=== PATIENT | male | born 1985 | race Caucasian/White ===

== ENCOUNTER → 2021-07-28 | Day surgery (SDC) | payer OTHER ==
[~2021-07-28] VITALS: Ht 185.4 cm; Wt 90.9 kg
[~2021-07-28] MED LIST: IV RINGERS,LACTATED 1000ML 1,000 ML IV ONE; LORA5TAB7 PO; PROPOFOL 10 MG/ML (20ML) VIAL. IV ONE; VENTOLIN HFA18 GM INH
[2021-07-28 07:14] VITALS: BP 134/94
[2021-07-28 08:56] VITALS: BP 133/66
--- NOTE | 2021-08-01 11:10 | PATHOLOGY ---
[facility] Accession Number: [id number] . 01 Material submitted: . esophagus - DISTAL ESOPHAGUS BIOPSY. Modifiers: distal . 01 Clinical history: . ABD PAIN, BLOOD IN STOOL EGD/COLONOSCOPY . 02 Diagnosis: Esophagus "distal", biopsy: - Esophageal squamous mucosa with features of reflux esophagitis. - Negative for intestinal metaplasia, dysplasia and malignancy. ([facility]; 07/31/2021) [facility] 07/31/2021 1744 Local . 02 Electronically signed: . Carmen Campos MD, Pathologist NPI- [id number] . 01 Gross description: . Received in formalin labeled "[place], [place], distal esophagus BX" are multiple granger-brown soft tissue fragments measuring in aggregate 1.2 x 0.3 x 0.1 cm. The specimen is submitted entirely in A1. ([facility] [place]; 07/30/2021) [facility] 07/30/2021 0842 Local . 02 Pathologist provided ICD-10: R10.9, K92.1 . 02 CPT . 191800 Specimen Comment: A courtesy copy of this report has been sent to [phone], [phone] Specimen Comment: [id number] Specimen Comment: Report sent to / DR CONDON Specimen Comment: A duplicate report has been generated due to demographic updates. Performed at: 01 [facility] [address] [facility] [address], [place] [id number] MD Neil Kohli MD Phone: [phone] Performed at: 02 [facility] [address] [id number] MD Orlando Gu MD Phone: [phone]
== END | disposition home or self-care (01) ==
LOC: ENDOS 06:54
PROVIDERS: ATTEND Internal Medicine Gastroenterology
DX: K92.1 Melena (principal); K64.0 First degree hemorrhoids; R10.9 Unspecified abdominal pain; K21.00 Gastro-esophageal reflux disease with esophagitis, without bleeding; K63.89 Other specified diseases of intestine; K31.89 Other diseases of stomach and duodenum; E66.3 Overweight; J45.909 Unspecified asthma, uncomplicated; Z79.899 Other long term (current) drug therapy; Z98.890 Other specified postprocedural states; Z20.822 Contact with and (suspected) exposure to COVID-19
CPT/HCPCS: 43239; 45378; 87426; 88305; J2704